=== PATIENT | male | born 1995 | race Caucasian/White ===

== ENCOUNTER 2017-03-12 19:09 | Emergency (ER) | payer BC ==
[~2017-03-12] VITALS: Ht 185.4 cm; Wt 93.3 kg
[2017-03-12 19:14] VITALS: TEMP 37.1; O2SAT 99; Ht 185.4 cm; Wt 93.3 kg
[2017-03-12 20:06] LABS: BUN/CREATININE RATIO 11.2 (10-20); CALCIUM 9.2 mg/dl (8.5-10.1); CREATININE 0.98 mg/dl (0.60-1.40); POTASSIUM 3.7 mmol/L (3.5-5.1)
[2017-03-12 20:45] VITALS: BP 133/89; PULSE 94; O2SAT 93
--- NOTE | 2017-03-12 21:06 | EMERGENCY ROOM VISIT NOTE ---
History Report prepared by Raul: Jair An Under the Supervision of: Dr. Dean Muñiz D.O. First contact with patient: 19:11 Chief Complaint: ALCOHOL OVERDOSE Stated Complaint: ETOH History of Present Illness The patient is a 21 year old male who presents to the Emergency Room with complaints of alcohol intoxication occurring prior to arrival. The patient states that he sat down, and the copy operator made him stand up and go in the ambulance. The patient states that he started drinking around 0930 this morning. He drank 7 -9 beers, and his last drink was around 1600. The patient states that he in an [employer], and he does not have any medical problems. The patient states that he has not fallen. Pt denies headache, change in vision, fevers, chest pain, shortness of breath, nausea, vomiting, diarrhea, pain with urination, and melena. Source of History: patient History Limited By: intoxication Onset: prior to arrival Position: other (global) Quality: other (alcohol intoxication) Timing: constant Review of Systems See HPI for pertinent positives & negatives. A total of 10 systems reviewed and were otherwise negative. Past Medical & Surgical Medical Problems: (1) No pertinent past medical history Social History Smoking Status: Never Smoker Marital Status: single Occupation Status: employed Current/Historical Medications No Active Prescriptions or Reported Meds Allergies Coded Allergies: No Known Allergies (Unverified , 01/14/16) Physical Exam Vital Signs Date Time Temp Pulse Resp B/P Pulse Ox O2 Delivery O2 Flow Rate FiO2 03/12/17 20:45 94 18 133/89 93 03/12/17 19:14 108 03/12/17 19:14 99 Room Air 03/12/17 19:14 37.1 113 18 120/70 95 Room Air Physical Exam GENERAL: Sitting up in bed laughing and interacting. Disheveled no acute distress. HEAD: normocephalic, atraumatic EYE EXAM: normal conjunctiva OROPHARYNX: no exudate, no erythema, lips, buccal mucosa, and tongue normal and mucous membranes are moist NECK: supple, no nuchal rigidity, no adenopathy, non-tender LUNGS: Clear to auscultation. Normal chest wall mechanics HEART: no murmurs, S1 normal and S2 normal ABDOMEN: abdomen soft, non-tender, normo-active bowel sounds, no masses, no rebound or guarding. BACK: Back is symmetrical on inspection and there is no deformity, no midline tenderness, no CVA tenderness. SKIN: no rashes and no bruising UPPER EXTREMITIES: Full active and passive range of motion without tenderness of all joints in upper extremities. Grossly normal. LOWER EXTREMITIES: No pitting edema. NEURO EXAM: Alert, oriented to person place and time. No slurring of the words. Normal sensorium, cranial nerves II-XII grossly intact, no gross weakness of arms, no gross weakness of legs. Medical Decision & Procedures Laboratory Results 03/12/17 19:29 Test 03/12/17 19:29 Anion Gap 8.0 mmol/L (3-11) Est Creatinine Clear Calc Drug Dose 132.5 ml/min Estimated GFR () 125.4 Estimated GFR (Non- 108.2 BUN/Creatinine Ratio 11.2 (10-20) Calcium Level 9.2 mg/dl (8.5-10.1) Ethyl Alcohol mg/dL 322.0 mg/dl (0-3) Laboratory results per my review. ED Course ED COURSE: Vital signs were reviewed and showed normal vitals The patients medical record was reviewed The above diagnostic studies were performed and reviewed. ED treatments and interventions as stated above. 1910: The patient was evaluated in room B11. A complete history and physical examination was performed. 2012: I reevaluated the patient, and he was feeling fine, and his friend was here. 2051: Upon reevaluation, the patient is resting, and his friend, Arteha Brizuela was there to take him home and take responsibility. I discussed my findings with the patient and he understands and agrees with the treatment plan. Based on the patients age, coexisting illnesses, exam and lab findings the decision to treat as an outpatient was made. The patient remained stable while under my care. The patient appeared well at the time of discharge. Medical Decision Differential diagnosis includes etiologies such as alcohol intoxication, toxicologic, infection, hypoglycemia, electrolyte abnormalities, cardiac sources , intracerebral event, neurologic, as well as others were entertained. Patient is a 21-year-old male that comes in via EMS for alcohol intoxication. He notes that he was sitting on the ground and police pulled him to stand up and called EMS. EMS to drinking today. He has no other complaints. He does drink regular. He is from [place] outside [place] and works in an [employer] management. BMP was unremarkable. Alcohol was 322. He was observed in the ER for 2 hours and had a sober friend present at bedside. He was able to ambulate around without difficulty and normal conversation. Although his EtOH is elevated clinically he appears to be able to take care of himself but with his elevated alcohol I felt it prudent to have a sober friend monitor him for the remainder of the night. Discussed with Pt concerning signs and symptoms to watch out for. Pt was instructed to follow up with their PCP and discussed with the patient their option to return to the ED at anytime for persistent or worsening symptoms. The appropriate anticipatory guidance and out-patient management, including indications for return to the emergency department, were explained at length to the patient and understood. Impression Primary Impression: Alcohol abuse Additional Impression: Alcohol use with intoxication Scribe Attestation The scribe's documentation has been prepared under my direction and personally reviewed by me in its entirety. I confirm that the note above accurately reflects all work, treatment, procedures, and medical decision making performed by me. Departure Information Dispostion Home / Self-Care Prescriptions No Active Prescriptions or Reported Meds Referrals No Doctor, Assigned (PCP) Forms HOME CARE DOCUMENTATION FORM, IMPORTANT VISIT INFORMATION Patient Instructions Alcohol Abuse - [facility], [facility]: [employer] Students and Alcohol Related Visits, My [facility] Additional Instructions Please follow up with your primary care doctor with in the next 24 hours. Any worsening of your symptoms, please return to the ED immediately. This includes confusion, weakness or numbness in arms or legs, passing out, any new pain, or any other concerning signs or symptoms from your standpoint. Please refrain from drinking any alcohol for the remainder of the day or driving. Problem Qualifiers
== END 2017-03-12 20:45 | disposition home or self-care (01) ==
LOC: EDBD 19:09 → C.EDB 19:12
DX: F10.129 Alcohol abuse with intoxication, unspecified (principal); Y90.8 Blood alcohol level of 240 mg/100 ml or more